=== PATIENT | female | born 1950 | race Caucasian/White ===

== ENCOUNTER → 2017-07-29 | Outpatient (CLI) | payer MEDICARE ==
[~2017-07-29] MED LIST: ALBUTEROL SULFATE IH; ALEN70TA2 PO; ATEN25TA PO; DIPH25TA22 PO; FLUT1DIS4 IH; HYDR1POW19 MC; HYDR25TA PO; LISI-613 PO; LORA10TA7 PO; MULT-1192 PO; OMEG1CAP12 PO; OMEP20TA2 PO; PREDNISONE PO; ROSU10TA35 PO; TICA90TA PO; [UNRECOGNIZED DRUG - OTHER] IH
== END | disposition home or self-care (01) ==
LOC: SHCH 07:53
PROVIDERS: ATTEND Internal Medicine Cardiovascular Disease
DX: I10 Essential (primary) hypertension (principal)
CPT/HCPCS: 93306

== ENCOUNTER → 2017-09-14 | Outpatient (CLI) | payer OTHER ==
[~2017-09-14] MED LIST changes: +ALBUTEROL SULFATE 0.083% 2.5 MG/3 ML INH IH ONE; +ROSU10TA27 PO; -ROSU10TA35 PO
== END | disposition home or self-care (01) ==
LOC: RAH 12:11
PROVIDERS: ATTEND Internal Medicine Cardiovascular Disease
DX: Z13.6 Encounter for screening for cardiovascular disorders (principal); K44.9 Diaphragmatic hernia without obstruction or gangrene
CPT/HCPCS: 75571; 94060; 94727; 94729

== ENCOUNTER → 2017-09-14 | Outpatient (CLI) | payer MEDICARE | END | disposition home or self-care (01) | LOC: RESP 08:48 | PROVIDERS: ATTEND Internal Medicine Cardiovascular Disease ==

== ENCOUNTER → 2017-10-10 | Outpatient (CLI) | payer MEDICARE ==
[~2017-10-10] MED LIST changes: -ALBUTEROL SULFATE 0.083% 2.5 MG/3 ML INH IH ONE; -ALEN70TA2 PO; -FLUT1DIS4 IH; -HYDR1POW19 MC; -MULT-1192 PO; -OMEG1CAP12 PO
== END | disposition home or self-care (01) ==
LOC: RAH 10:51
PROVIDERS: ATTEND Internal Medicine
DX: J84.10 Pulmonary fibrosis, unspecified (principal); J43.0 Unilateral pulmonary emphysema [MacLeod's syndrome]; J47.9 Bronchiectasis, uncomplicated; I25.10 Atherosclerotic heart disease of native coronary artery without angina pectoris; R94.2 Abnormal results of pulmonary function studies
CPT/HCPCS: 71250

== ENCOUNTER 2017-10-11 07:38 | Observation (INO) | payer MEDICARE ==
[2017-10-07 13:10] VITALS: BP 145/67
[2017-10-07 13:46] LABS: BASOPHILS % (AUTO) 0.8 % (0.0-5.0); EOSINOPHILS % (AUTO) 1.3 % (0.0-8.0); LYMPHOCYTES % (AUTO) 13.8 % (21.0-51.0); MEAN CORPUSCULAR HEMOGLOBIN 31.5 pg (27.0-33.0); MEAN CORPUSCULAR HGB CONC 34.3 g/dL (32.0-36.0); MEAN CORPUSCULAR VOLUME 91.8 fL (79-99); MONOCYTES % (AUTO) 11.2 % (3.0-13.0); NEUTROPHILS % (AUTO) 72.9 % (40.0-77.0); PLATELET COUNT (AUTO) 260 K/uL (130-400); RED BLOOD CELL COUNT(AUTO) 4.03 MIL/uL (4.00-5.50); RED CELL DISTRIBUTION WIDTH 13.5 % (11.0-15.5); WHITE BLOOD COUNT (AUTO) 8.2 K/uL (4.8-10.8)
[2017-10-07 13:49] LABS: APPEARANCE,URINE Clear (CLEAR); BILIRUBIN,URINE Negative (NEGATIVE); COLOR,URINE Yellow (YELLOW); GLUCOSE, URINE (UA) Negative (NEGATIVE); KETONES,URINE Negative (NEGATIVE); LEUKOCYTE ESTERASE ,URINE Negative (NEGATIVE); NITRATE,URINE Negative (NEGATIVE); OCCULT BLOOD,URINE Negative (NEGATIVE); PH,URINE 8.5 (5.0-8.0); PROTEIN,URINE Negative (NEGATIVE); UROBILINOGEN,URINE 0.2 mg/dL (0.2-1.0)
[2017-10-07 13:55] LABS: CREATININE 1.1 mg/dL (0.5-1.5); POTASSIUM 4.1 mmol/L (3.5-5.1)
[2017-10-07 13:57] LABS: BACTERIA,URINE Rare /HPF (None Seen); HYALINE CASTS, URINE 0-1 /LPF (0-1 /LPF); RBC,URINE None Seen /HPF (0-1); SQUAMOUS EPITHELIAL CELL,UR Rare /HPF (0-2); WBC,URINE None Seen /HPF (0-1)
[2017-10-07 13:58] LABS: INR 0.97 (0.85-1.15); PARTIAL THROMBOPLASTIN TIME 24.7 SEC (26.3-35.5); PROTHROMBIN TIME 10.2 SEC (9.6-11.6)
[2017-10-11] VITALS (14 sets, daily range): BP systolic 119–162; BP diastolic 61–86
[~2017-10-11] VITALS: Ht 157.5 cm; Wt 111.5 kg
[~2017-10-11 07:38] MED LIST changes: -TICA90TA PO
[2017-10-11] MEDS ORDERED: SODIUM BICARB 50MEQ 50ML VIAL ONE (10:27)
[2017-10-11] MEDS ORDERED: LIDOCAINE HCL 2% 20ML ONE (10:27)
[2017-10-11] MEDS ORDERED: HEPARIN SODIUM 1000UNIT/ML 10ML VIAL ONE (10:27)
[2017-10-11] MEDS ORDERED: ISOVUE-370 50ML VIAL IV ONE (10:27)
[2017-10-11] MEDS ORDERED: NITROGLYCERIN 5 MG/ML 10 ML VIAL IV ONE (10:27)
[2017-10-11] MEDS ORDERED: IOPAMIDOL-370 100 ML VIAL IV ONE ×2 (10:27→11:21)
[2017-10-11] MEDS ORDERED: MIDAZOLAM HCL 1 MG/ML 2ML VIAL ONE ×2 (10:42→11:15)
[2017-10-11] MEDS ORDERED: MEPERIDINE-PF 25 MG/ML SYG ONE ×2 (10:42→11:15)
[2017-10-11] MEDS ORDERED: DiphenhydrAMINE HCL 50 MG/ML VIAL ONE (10:47)
[2017-10-11] MEDS ORDERED: METHYLPREDNISOLONE SOD SUCC 125MG/2ML VIAL ONE (10:47)
[2017-10-11] MEDS ORDERED: TICAGRELOR 90 MG TABLET ONE (11:57)
[2017-10-11] MEDS: SODIUM CHLORIDE 0.9% 1000ML 1,000 ML IV SCH ×3 (12:08→21:03)
[2017-10-11] MEDS ORDERED: ACETAMINOPHEN-CODEINE 300/30MG TAB PO PRN ×2 (12:15)
[2017-10-11] MEDS ORDERED: ALBUTEROL SULFATE IH PRN (12:15)
[2017-10-11] MEDS ORDERED: ONDANSETRON HCL 4 MG/2 ML VIAL IVP PRN (12:15)
[2017-10-11] MEDS ORDERED: TICA90TA PO (12:18)
[2017-10-11] MEDS: TICAGRELOR 90 MG TABLET PO SCH (20:58)
[2017-10-11] MEDS ORDERED: ATORVASTATIN CALCIUM 20 MG TABLET PO SCH (21:00)
[2017-10-11] MEDS ORDERED: [UNRECOGNIZED DRUG - OTHER] IH SCH (21:00)
[2017-10-12] MEDS: SODIUM CHLORIDE 0.9% 1000ML 1,000 ML IV SCH (02:46)
[2017-10-12 03:45] VITALS: BP 124/44
[2017-10-12 04:18] LABS: HEMATOCRIT 32.3 % (36-48); MEAN CORPUSCULAR HEMOGLOBIN 32.5 pg (27.0-33.0); MEAN CORPUSCULAR HGB CONC 35.5 g/dL (32.0-36.0); MEAN CORPUSCULAR VOLUME 91.7 fL (79-99); PLATELET COUNT (AUTO) 235 K/uL (130-400); RED BLOOD CELL COUNT(AUTO) 3.52 MIL/uL (4.00-5.50); RED CELL DISTRIBUTION WIDTH 13.6 % (11.0-15.5); WHITE BLOOD COUNT (AUTO) 13.6 K/uL (4.8-10.8)
[2017-10-12 04:46] LABS: CREATININE 1.2 mg/dL (0.5-1.5); POTASSIUM 3.6 mmol/L (3.5-5.1)
[2017-10-12] MEDS ORDERED: ALBUTEROL SULFATE 0.083% 2.5 MG/3 ML INH IH PRN (07:15)
[2017-10-12 08:06] VITALS: BP 142/78
[2017-10-12] MEDS ORDERED: ATENOLOL 25 MG TABLET PO SCH (09:00)
[2017-10-12] MEDS ORDERED: PANTOPRAZOLE SODIUM 40 MG TABLET.DR PO SCH (09:00)
[2017-10-12] MEDS ORDERED: LORATADINE 10 MG TABLET PO SCH (09:00)
[2017-10-12] MEDS ORDERED: HYDROCHLOROTHIAZIDE 25 MG TABLET PO SCH (09:00)
[2017-10-12] MEDS ORDERED: LISINOPRIL 20 MG TABLET PO SCH (09:00)
[2017-10-12 09:15] VITALS: BP 142/78
[2017-10-12] MEDS: TICAGRELOR 90 MG TABLET PO SCH (09:15)
== END 2017-10-12 11:05 | disposition home or self-care (01) ==
LOC: DAH 07:38 → 2DH 07:39 → DAH 07:39
PROVIDERS: ADMIT Internal Medicine; ATTEND Internal Medicine
DX: I25.119 Atherosclerotic heart disease of native coronary artery with unspecified angina pectoris (principal); I10 Essential (primary) hypertension; E78.5 Hyperlipidemia, unspecified; K29.70 Gastritis, unspecified, without bleeding; J45.909 Unspecified asthma, uncomplicated; E66.9 Obesity, unspecified; G62.9 Polyneuropathy, unspecified; I25.84 Coronary atherosclerosis due to calcified coronary lesion; M51.9 Unspecified thoracic, thoracolumbar and lumbosacral intervertebral disc disorder; G89.29 Other chronic pain; M54.9 Dorsalgia, unspecified; Z90.49 Acquired absence of other specified parts of digestive tract; Z82.49 Family history of ischemic heart disease and other diseases of the circulatory system; Z88.6 Allergy status to analgesic agent
CPT/HCPCS: 36415 ×3; 71045; 80048 ×2; 80061; 81001; 85025; 85027; 85347 ×2; 85610; 85730; 93005; 93458; 94664; A4606; C1725; C1760; C1769 ×2; C1874 ×2; C1887; C1894 ×2; C9600 ×2; G0378 ×27; J1200; J1644; J2175 ×2; J2250 ×2; J2930; J3490 ×3; J7030 ×2; Q9967 ×3; 99152; 99153

== ENCOUNTER 2019-04-06 13:00 | Observation (INO) | payer MEDICARE ==
[~2019-04-06] VITALS: Ht 157.5 cm; Wt 98.9 kg
[2019-04-06 10:08] VITALS: BP 157/59
[~2019-04-06 13:00] MED LIST changes: -DIPH25TA22 PO; -PREDNISONE PO; -ROSU10TA27 PO; +ROSU10TA28 PO; -[UNRECOGNIZED DRUG - OTHER] IH
[2019-04-06] MEDS ORDERED: FLUT1DIS4 IH (18:05)
[2019-04-06] MEDS ORDERED: AEC81 PO (18:05)
[2019-04-06] MEDS ORDERED: [UNRECOGNIZED DRUG - OTHER] TP (18:05)
[2019-04-06] MEDS ORDERED: TICA60TA PO (18:05)
[2019-04-06] MEDS ORDERED: ANAS1TAB7 PO (18:05)
[2019-04-10] VITALS (20 sets, daily range): BP systolic 119–183; BP diastolic 50–95
[2019-04-10] MEDS: CLINDAMYCIN 900 MG/D5% WATER 50 ML IV SCH ×6 (05:00→16:52)
[2019-04-10] MEDS ORDERED: LACTATED RINGERS 1000ML 1,000 ML IV ONE (06:37)
[2019-04-10] MEDS ORDERED: BUPIVACAINE/EPI/PF 0.5% 30ML VIAL IJ ONE (06:57)
[2019-04-10] MEDS ORDERED: DURAMORPH PF1 MG/ML 10ML AMP IV ONE (06:57)
[2019-04-10] MEDS ORDERED: THROMBIN-JMI 20000 UNIT KIT TP ONE (06:57)
[2019-04-10] MEDS ORDERED: BACITRACIN 50,000 UNIT VIAL ONE (06:57)
[2019-04-10] MEDS ORDERED: SUCCINYLCHOLINE 200MG/10ML SYR ONE (07:03)
[2019-04-10] MEDS ORDERED: LIDOCAINE PF 2% 5ML ABBOJECT ONE (07:03)
[2019-04-10] MEDS ORDERED: MIDAZOLAM HCL 1 MG/ML 2ML VIAL ONE (07:04)
[2019-04-10] MEDS ORDERED: GLYCOPYRROLATE 1 MG/5 ML SYRINGE ONE (07:04)
[2019-04-10] MEDS ORDERED: PROPOFOL 10 MG/ML 20ML VIAL IV ONE (07:04)
[2019-04-10] MEDS ORDERED: DEXAMETHASONE SOD PHOSPHATE 10MG/ML 1ML VIAL ONE (07:04)
[2019-04-10] MEDS ORDERED: ROCURONIUM 10MG/1ML SYR 10 MG/ML ML ONE ×2 (07:05→08:50)
[2019-04-10] MEDS ORDERED: ONDANSETRON HCL 4 MG/2 ML VIAL ONE (07:05)
[2019-04-10] MEDS ORDERED: NEOSTIGMINE 5MG/5ML SYR IV ONE (07:05)
[2019-04-10] MEDS ORDERED: FENTANYL CITRATE PF 50 MCG/1 ML 2ML VIAL ONE ×2 (07:06→08:53)
[2019-04-10] MEDS ORDERED: LIDOCAINE HCL 4% LTA SOL 4 ML VIAL ONE (07:12)
[2019-04-10] MEDS ORDERED: DEXAMETHASONE SOD PHOSPHATE 4 MG/ML 1ML VIAL ONE (07:12)
[2019-04-10] MEDS ORDERED: EPHEDRINE SULFATE 50 MG/ML AMPULE ONE (08:16)
[2019-04-10] MEDS ORDERED: DiphenhydrAMINE HCL 50 MG/ML VIAL ONE (08:42)
[2019-04-10] MEDS ORDERED: GENTAMICIN 80 MG/NS 100 ML PB 100 ML IV ONE (08:53)
[2019-04-10] MEDS ORDERED: BUPIVACAINE/EPI/PF 0.25% 30ML VIAL IJ ONE (10:49)
[2019-04-10] MEDS ORDERED: ALBUTEROL SULFATE IH PRN (11:30)
[2019-04-10] MEDS ORDERED: SODIUM CHLORIDE 0.9% 10 ML VIAL IVP PRN (11:30)
[2019-04-10] MEDS: DEXAMETHASONE SOD PHOSPHATE 4 MG/ML 1ML VIAL IVP SCH ×3 (11:30→23:18)
[2019-04-10] MEDS ORDERED: APPL TP PRN (11:30)
[2019-04-10] MEDS ORDERED: PROMETHAZINE HCL 25 MG/ML 1ML AMPULE IM PRN (11:30)
[2019-04-10] MEDS ORDERED: HYDROCODONE/ACETAMINOPHEN 5/325 MG TAB PO PRN (11:30)
[2019-04-10] MEDS ORDERED: HYDRALAZINE HCL 20 MG/ML VIAL ONE (12:20)
--- NOTE | 2019-04-10 12:55 | NUR ---
received pt post op, she is aaox3, moving feet, rating pain at a 2; at bedside.
[2019-04-10] MEDS: MORPHINE SULFATE 2 MG/ML 1ML SYG IVP PRN ×2 (14:35→20:14)
[2019-04-10] MEDS: BUDESONIDE 0.5 MG/2 ML INH IH SCH (18:58)
[2019-04-10] MEDS: ALBUTEROL SULFATE 0.083% 2.5 MG/3 ML INH IH SCH ×2 (18:58→23:58)
--- NOTE | 2019-04-10 19:58 | NUR ---
AMBULATING OUT OF ROOM AMBULATING IN HALLWAY AT THIS TIME, NO C/O PAIN OR DISCOMFORT. NO HEADACHE OR DIZZINESS REPORTED. AMBULATING WITH WALKER, STATES FEELS MORE COMFORTABLE. DRESSING TO LOWER BACK OBSERVED WITH MODERATE DRAINAGE, MEREDITH DRAIN IN PLACE. IVAN CATHETER DRAINING YELLOW URINE.
[2019-04-10] MEDS: LACTATED RINGERS 1000ML 1,000 ML IV SCH (20:08)
[2019-04-10] MEDS ORDERED: TICAGRELOR 60 MG PO SCH (21:00)
[2019-04-10] MEDS ORDERED: ATORVASTATIN CALCIUM 20 MG TABLET PO SCH (21:00)
[2019-04-11] VITALS: BP 128/68
[2019-04-11] MEDS: LACTATED RINGERS 1000ML 1,000 ML IV SCH (00:14)
[2019-04-11] MEDS: DEXAMETHASONE SOD PHOSPHATE 4 MG/ML 1ML VIAL IVP SCH (05:22)
--- NOTE | 2019-04-11 05:53 | NUR ---
PATIENT CARE IVAN CATHETER DISCONTINUED AT 05:30, TOLERATED PROCEDURE WELL. OUT OF ROOM AMBULATING WITH WALKER IN HALLWAY AT THIS TIME, NO C/O PAIN OR DISCOMFORT. NO HEADACHE OR DIZZINESS REPORTED. DRESSING TO LOWER BACK OBSERVED WITH MODERATE DRAINAGE SAME PREVIOUS, MEREDITH DRAIN IN PLACE. CURRENTLY DUE TO VOID.
[2019-04-11] MEDS: ALBUTEROL SULFATE 0.083% 2.5 MG/3 ML INH IH SCH (06:22)
[2019-04-11] MEDS: BUDESONIDE 0.5 MG/2 ML INH IH SCH (06:30)
[2019-04-11 08:01] VITALS: BP 140/63
--- NOTE | 2019-04-11 08:45 | NUR ---
DISCHARGE INSTRUCTIONS GIVEN AND EXPLAINED UTILIZING TEACH BACK METHOD.PT AND PT'S VERBALIZED UNDERSTANDING. PT REPORTS WILL TAKE HER OWN HOME MEDICATIONS. DRESSING CHANGED UTILIZING ASEPTIC TECHNIQUE. MINIMAL SANGUINEOUS DRAINAGE WITH MILD SWELLING AND NO REDNESS. COVERED WITH 4X4 GAUZE SECURED WITH TAPE. MEREDITH DRAIN REMOVED. 70ML BLOODY DRAINAGE. DRESSING D/I. STAPLE REMOVAL KIT GIVEN TO PATIENT AND INSTRUCTED TO TAKE WITH HER TO DR. SANTO'S APPOINTMENT.
[2019-04-11] MEDS ORDERED: HYDROCHLOROTHIAZIDE 25 MG TABLET PO SCH (09:00)
[2019-04-11] MEDS ORDERED: ASPIRIN 81 MG EC TAB PO SCH (09:00)
[2019-04-11] MEDS ORDERED: FLUTICASONE/SALMETEROL 100MCG-50MCG/DISKUS IH SCH (09:00)
[2019-04-11] MEDS ORDERED: LORATADINE 10 MG TABLET PO SCH (09:00)
[2019-04-11] MEDS ORDERED: ATENOLOL 25 MG TABLET PO SCH (09:00)
[2019-04-11] MEDS ORDERED: ANASTROZOLE 1 MG PO SCH (09:00)
[2019-04-11] MEDS ORDERED: PANTOPRAZOLE SODIUM 40 MG TABLET.DR PO SCH (09:00)
[2019-04-11] MEDS ORDERED: LISINOPRIL 20 MG TABLET PO SCH (09:00)
== END 2019-04-11 09:33 | disposition home or self-care (01) ==
LOC: EDSTATUS 13:00 → DAHIP 04-10 05:37 → 4BH 04-10 12:38 → EDSTATUS 04-10 13:00
PROVIDERS: ADMIT Neurological Surgery; ATTEND Neurological Surgery
DX: M48.061 Spinal stenosis, lumbar region without neurogenic claudication (principal); C50.919 Malignant neoplasm of unspecified site of unspecified female breast; E66.9 Obesity, unspecified; I10 Essential (primary) hypertension; E78.5 Hyperlipidemia, unspecified; J45.909 Unspecified asthma, uncomplicated; Z90.49 Acquired absence of other specified parts of digestive tract; Z90.89 Acquired absence of other organs; Z98.61 Coronary angioplasty status; Z98.51 Tubal ligation status; Z79.82 Long term (current) use of aspirin; Z79.51 Long term (current) use of inhaled steroids; Z79.899 Other long term (current) drug therapy; Z88.0 Allergy status to penicillin; Z88.8 Allergy status to other drugs, medicaments and biological substances; Z91.040 Latex allergy status; Z68.39 Body mass index [BMI] 39.0-39.9, adult
CPT/HCPCS: 63047; 63048 ×2; 72020; 94640 ×5; 94664; 96365; 96375; 96376 ×2; A4215; A4221; A4222; A4223; A4344; A4600; A4649 ×3; A4663; A6260; G0378 ×22; J0330; J0360; J1100 ×5; J1200; J1580; J2001; J2250; J2274; J2405; J2704; J2710; J3010 ×2; J3490 ×6; J7030; J7120 ×4

== ENCOUNTER → 2020-12-23 | Outpatient (CLI) | payer MEDICARE ==
[~2020-12-23] MED LIST changes: +AEC81 PO; +ANAS1TAB7 PO; +FLUT1DIS4 IH; -LISI-613 PO; +LISI20TA24 PO; +REGADENOSON 0.4 MG/5 ML PF SYG IVP SCH; +TICA60TA PO; +[UNRECOGNIZED DRUG - OTHER] TP
== END | disposition home or self-care (01) ==
LOC: SHCH 07:36
PROVIDERS: ATTEND Internal Medicine Cardiovascular Disease
DX: I10 Essential (primary) hypertension (principal); R06.09 Other forms of dyspnea; R51.9 Headache, unspecified; Z95.5 Presence of coronary angioplasty implant and graft
CPT/HCPCS: 78452; 93017; 96374; A9500 ×2; J2785

== ENCOUNTER → 2020-12-28 | Outpatient (CLI) | payer MEDICARE ==
[~2020-12-28] MED LIST changes: -REGADENOSON 0.4 MG/5 ML PF SYG IVP SCH
== END | disposition home or self-care (01) ==
LOC: SHCH 13:27
PROVIDERS: ATTEND Internal Medicine Cardiovascular Disease
DX: I35.0 Nonrheumatic aortic (valve) stenosis (principal)
CPT/HCPCS: 93306; 93356

== ENCOUNTER 2021-12-30 07:23 | Observation (INO) | payer MEDICARE ==
[2021-12-28 09:48] LABS: BASOPHILS % (AUTO) 1.2 % (0.0-5.0); EOSINOPHILS % (AUTO) 3.9 % (0.0-8.0); HEMATOCRIT 34.4 % (36-48); LYMPHOCYTES % (AUTO) 10.3 % (21.0-51.0); MEAN CORPUSCULAR HEMOGLOBIN 28.1 pg (27.0-33.0); MEAN CORPUSCULAR HGB CONC 32.8 g/dL (32.0-36.0); MEAN CORPUSCULAR VOLUME 85.6 fL (79-99); MONOCYTES % (AUTO) 12.1 % (3.0-13.0); NEUTROPHILS % (AUTO) 72.2 % (40.0-77.0); PLATELET COUNT (AUTO) 266 K/uL (130-400); RED BLOOD CELL COUNT(AUTO) 4.02 MIL/uL (4.00-5.50); RED CELL DISTRIBUTION WIDTH 14.3 % (11.0-15.5); WHITE BLOOD COUNT (AUTO) 5.9 K/uL (4.8-10.8)
[2021-12-28 09:55] LABS: CREATININE 0.9 mg/dL (0.5-1.5); POTASSIUM 4.5 mmol/L (3.5-5.1)
[2021-12-28 10:00] LABS: INR 0.94 (0.85-1.15); PROTHROMBIN TIME 10.3 SEC (9.6-11.6)
[2021-12-28 10:13] VITALS: BP 175/75
[2021-12-28 10:31] LABS: APPEARANCE,URINE Clear (CLEAR); BILIRUBIN,URINE Negative (NEGATIVE); COLOR,URINE Yellow (YELLOW); GLUCOSE, URINE (UA) Negative (NEGATIVE); KETONES,URINE Negative (NEGATIVE); LEUKOCYTE ESTERASE ,URINE Trace (NEGATIVE); NITRATE,URINE Negative (NEGATIVE); OCCULT BLOOD,URINE Negative (NEGATIVE); PROTEIN,URINE Negative (NEGATIVE)
[2021-12-28 10:40] LABS: BACTERIA,URINE Rare /HPF (None Seen); RBC,URINE 0-1 /HPF (0-1); SQUAMOUS EPITHELIAL CELL,UR Rare /HPF (0-2); WBC,URINE 0-1 /HPF (0-1)
[~2021-12-30] VITALS: Ht 154.9 cm; Wt 102.2 kg
[2021-12-30] VITALS (31 sets, daily range): BP systolic 117–176; BP diastolic 52–86
[~2021-12-30 07:23] MED LIST changes: -ATEN25TA PO; +ATEN50TA PO; +CEFAZOLIN SODIUM 1 GM VIAL IVP SCH; -ROSU10TA28 PO; +ROSU20TA31 PO; -TICA60TA PO; -[UNRECOGNIZED DRUG - OTHER] TP
[2021-12-30] MEDS ORDERED: CEFAZOLIN SODIUM 1 GM VIAL ONE (08:00)
[2021-12-30] MEDS ORDERED: LACTATED RINGERS 1000ML 1,000 ML IV ONE (08:01)
[2021-12-30] MEDS ORDERED: 0.9%NACL 1000ML 1,000 ML IV ONE (08:09)
[2021-12-30] MEDS ORDERED: FENTANYL CITRATE PF 50 MCG/1 ML 2ML VIAL ONE ×2 (08:15→08:36)
[2021-12-30] MEDS ORDERED: MIDAZOLAM HCL 1 MG/ML 2ML VIAL ONE (08:15)
[2021-12-30] MEDS ORDERED: ROCURONIUM 10MG/1ML SYR 10 MG/ML ML ONE (08:15)
[2021-12-30] MEDS ORDERED: PROPOFOL 10 MG/ML 20ML VIAL IV ONE (08:15)
[2021-12-30] MEDS ORDERED: ROPIVACAINE 0.5% 5MG/ML 30ML IJ ONE (08:35)
[2021-12-30] MEDS ORDERED: ONDANSETRON 4MG INJ ONE (08:44)
[2021-12-30] MEDS ORDERED: LIDOCAINE HCL-MPF 1% 2ML VIAL IV PRN (11:30)
[2021-12-30] MEDS ORDERED: DiphenhydrAMINE HCL 50 MG/ML VIAL IVP PRN (11:30)
[2021-12-30] MEDS ORDERED: KCL 20 MEQ ERTAB PO PRN (11:30)
[2021-12-30] MEDS ORDERED: FERROUS FUMARATE 324 MG TABLET PO PRN (11:30)
[2021-12-30] MEDS ORDERED: POTASSIUM CHLORIDE 20MEQ/100ML 100 ML IV PRN (11:30)
[2021-12-30] MEDS ORDERED: CALCIUM CARB 500MG PO PRN (11:30)
[2021-12-30] MEDS ORDERED: POTASSIUM CHLORIDE 10% ELIXIR 20 MEQ/15 ML UDCUP PO PRN (11:30)
[2021-12-30] MEDS ORDERED: OXYCODONE HCL 5 MG TAB PO PRN (11:30)
[2021-12-30] MEDS ORDERED: NEOSTIGMINE 5MG/5ML SYR IV ONE (11:50)
[2021-12-30] MEDS ORDERED: KETOROLAC 30MG VIAL (30MG/ML) ONE (11:50)
[2021-12-30] MEDS ORDERED: GLYCOPYRROLATE 1 MG/5 ML SYRINGE ONE (11:50)
[2021-12-30] MEDS ORDERED: MEPERIDINE-PF 25 MG/ML SYG ONE ×2 (12:12→12:21)
[2021-12-30] MEDS ORDERED: TRANEXAMIC ACID 1000MG/10ML ONE (12:22)
[2021-12-30] MEDS: OXYCODONE HCL 5 MG TAB PO PRN ×2 (14:25→21:00)
[2021-12-30] MEDS: KETOROLAC 15MG/ML VIAL (15MG/ML) IV PRN ×2 (14:38→18:06)
[2021-12-30] MEDS: CEFAZOLIN SODIUM 1 GM VIAL IVP SCH (18:44)
[2021-12-30] MEDS: ONDANSETRON 4MG INJ IVP PRN (18:56)
[2021-12-30] MEDS ORDERED: ALBUTEROL SULFATE IH PRN (20:00)
[2021-12-30] MEDS: FAMOTIDINE 20MG TAB PO SCH (20:57)
[2021-12-30] MEDS: ASPIRIN 81 MG EC TAB PO SCH (20:57)
[2021-12-30] MEDS: ATENOLOL 50 MG TABLET PO SCH (20:58)
[2021-12-30] MEDS: CELECOXIB 200 MG CAP PO SCH (20:58)
[2021-12-30] MEDS: LISINOPRIL 20 MG TABLET PO SCH (20:59)
[2021-12-30] MEDS: ACETAMINOPHEN 500 MG TABLET PO SCH (20:59)
[2021-12-30] MEDS: ROSUVASTATIN CALCIUM 20 MG PO SCH (21:00)
[2021-12-30] MEDS: Fluticasone/Salmeterol (Advair 100-50 Diskus) IH SCH (21:00)
[2021-12-30] MEDS: 0.9%NACL 1000ML 1,000 ML IV SCH (21:07)
[2021-12-31] MEDS: CEFAZOLIN SODIUM 1 GM VIAL IVP SCH (00:49)
[2021-12-31] MEDS: ACETAMINOPHEN 500 MG TABLET PO SCH ×3 (03:38→22:08)
[2021-12-31 03:53] VITALS: BP 128/63
[2021-12-31 05:30] LABS: HEMATOCRIT 25.1 % (36-48); MEAN CORPUSCULAR HEMOGLOBIN 28.5 pg (27.0-33.0); MEAN CORPUSCULAR HGB CONC 33.1 g/dL (32.0-36.0); MEAN CORPUSCULAR VOLUME 86.3 fL (79-99); RED BLOOD CELL COUNT(AUTO) 2.91 MIL/uL (4.00-5.50); RED CELL DISTRIBUTION WIDTH 14.3 % (11.0-15.5); WHITE BLOOD COUNT (AUTO) 7.6 K/uL (4.8-10.8)
[2021-12-31 05:44] LABS: CREATININE 1.1 mg/dL (0.5-1.5); POTASSIUM 4.3 mmol/L (3.5-5.1)
[2021-12-31 07:30] VITALS: BP 106/47
[2021-12-31] MEDS: 0.9%NACL 1000ML 1,000 ML IV SCH (07:30)
[2021-12-31] MEDS: KETOROLAC 15MG/ML VIAL (15MG/ML) IV PRN ×2 (08:45→21:51)
[2021-12-31] MEDS: Fluticasone/Salmeterol (Advair 100-50 Diskus) IH SCH ×2 (09:00→21:00)
[2021-12-31] MEDS: HYDROCHLOROTHIAZIDE 25 MG TABLET PO SCH ×2 (09:00→10:02)
[2021-12-31] MEDS: Anastrozole 1 MG PO SCH (09:00)
[2021-12-31] MEDS: LISINOPRIL 20 MG TABLET PO SCH ×3 (09:00→21:52)
[2021-12-31] MEDS: ATENOLOL 50 MG TABLET PO SCH ×3 (09:00→21:00)
[2021-12-31] MEDS: CELECOXIB 200 MG CAP PO SCH ×2 (09:36→22:04)
[2021-12-31] MEDS: FAMOTIDINE 20MG TAB PO SCH ×2 (09:36→21:52)
[2021-12-31] MEDS: LORATADINE 10 MG TABLET PO SCH (09:36)
[2021-12-31] MEDS: ASPIRIN 81 MG EC TAB PO SCH ×2 (09:36→21:52)
[2021-12-31] MEDS: POLYETHYLENE GLYCOL 3350 17 GM POWD.PACK PO SCH (09:58)
[2021-12-31] MEDS: OXYCODONE HCL 5 MG TAB PO PRN (10:40)
[2021-12-31 11:00] VITALS: BP 105/44
[2021-12-31] MEDS: ONDANSETRON 4MG INJ IVP PRN (12:44)
[2021-12-31 16:00] VITALS: BP 110/45
[2021-12-31] MEDS: ROSUVASTATIN CALCIUM 20 MG PO SCH (21:00)
[2021-12-31 21:02] VITALS: BP 117/47
[2021-12-31 23:25] VITALS: BP 110/47
[2022-01-01] MEDS: TRAMADOL HCL 50 MG TABLET PO PRN ×2 (00:58→08:33)
[2022-01-01] MEDS: ACETAMINOPHEN 500 MG TABLET PO SCH ×2 (03:28→12:11)
[2022-01-01 04:25] VITALS: BP 125/55
[2022-01-01 07:50] VITALS: BP 103/51
[2022-01-01] MEDS: Anastrozole 1 MG PO SCH (09:00)
[2022-01-01] MEDS: Fluticasone/Salmeterol (Advair 100-50 Diskus) IH SCH (09:00)
[2022-01-01] MEDS: HYDROCHLOROTHIAZIDE 25 MG TABLET PO SCH (09:00)
[2022-01-01] MEDS: ATENOLOL 50 MG TABLET PO SCH (09:00)
[2022-01-01] MEDS: LISINOPRIL 20 MG TABLET PO SCH (09:00)
[2022-01-01] MEDS: CELECOXIB 200 MG CAP PO SCH (09:02)
[2022-01-01] MEDS: FAMOTIDINE 20MG TAB PO SCH (09:02)
[2022-01-01] MEDS: LORATADINE 10 MG TABLET PO SCH (09:02)
[2022-01-01] MEDS: ASPIRIN 81 MG EC TAB PO SCH (09:02)
[2022-01-01] MEDS: POLYETHYLENE GLYCOL 3350 17 GM POWD.PACK PO SCH (09:06)
[2022-01-01 11:19] VITALS: BP 109/55
[2022-01-02] MEDS ORDERED: BISACODYL 10 MG SUPP.RECT RC PRN (11:30)
== END 2022-01-01 16:55 ==
LOC: DAH 07:23 → DAHIP 07:24 → DAH 07:24 → 4AH 13:46
PROVIDERS: ADMIT Orthopaedic Surgery; ATTEND Orthopaedic Surgery
DX: M17.11 Unilateral primary osteoarthritis, right knee (principal); Z20.822 Contact with and (suspected) exposure to COVID-19; I10 Essential (primary) hypertension; I25.10 Atherosclerotic heart disease of native coronary artery without angina pectoris; J45.909 Unspecified asthma, uncomplicated; D62 Acute posthemorrhagic anemia; M25.561 Pain in right knee; G89.29 Other chronic pain; E78.5 Hyperlipidemia, unspecified; Z85.3 Personal history of malignant neoplasm of breast; Z96.652 Presence of left artificial knee joint; Z79.82 Long term (current) use of aspirin; Z90.49 Acquired absence of other specified parts of digestive tract; Z79.899 Other long term (current) drug therapy; Z98.890 Other specified postprocedural states; Z98.51 Tubal ligation status; Z98.891 History of uterine scar from previous surgery
CPT/HCPCS: 36415; 64447; 76942; 80048; 81001; 84295; 85025; 85027; 85610; 87088; 87426; 87641; 96374; 96375; 96376; 97039; G0378; J0690; J1885; J2175; J2250; J2405; J2704; J2710; J2795; J3010; J3490; J7030; J7120

== ENCOUNTER → 2022-02-01 | Outpatient (CLI) | payer MEDICARE ==
[~2022-02-01] MED LIST changes: -CEFAZOLIN SODIUM 1 GM VIAL IVP SCH
[2022-02-01 14:15] LABS: BASOPHILS % (AUTO) 0.7 % (0.0-5.0); EOSINOPHILS % (AUTO) 2.1 % (0.0-8.0); HEMATOCRIT 32.9 % (36-48); LYMPHOCYTES % (AUTO) 7.3 % (21.0-51.0); MEAN CORPUSCULAR HEMOGLOBIN 27.7 pg (27.0-33.0); MEAN CORPUSCULAR HGB CONC 30.7 g/dL (32.0-36.0); MEAN CORPUSCULAR VOLUME 90.1 fL (79-99); MONOCYTES % (AUTO) 11.8 % (3.0-13.0); NEUTROPHILS % (AUTO) 77.8 % (40.0-77.0); PLATELET COUNT (AUTO) 287 K/uL (130-400); RED BLOOD CELL COUNT(AUTO) 3.65 MIL/uL (4.00-5.50); RED CELL DISTRIBUTION WIDTH 13.8 % (11.0-15.5); WHITE BLOOD COUNT (AUTO) 7.6 K/uL (4.8-10.8)
== END | disposition home or self-care (01) ==
LOC: RAH 12:14
PROVIDERS: ATTEND Internal Medicine Pulmonary Disease
DX: M47.815 Spondylosis without myelopathy or radiculopathy, thoracolumbar region (principal); J98.4 Other disorders of lung
CPT/HCPCS: 36415; 71250; 85025

== ENCOUNTER → 2023-08-17 | Outpatient (CLI) | payer MEDICARE ==
[~2023-08-17] MED LIST changes: +IOHEXOL 350 MG/ML 100ML INFUS..BTL IV ONE; -ROSU20TA31 PO; +ROSU20TA73 PO
== END | disposition home or self-care (01) ==
LOC: RAH 07:18
PROVIDERS: ATTEND Internal Medicine Cardiovascular Disease
DX: K44.9 Diaphragmatic hernia without obstruction or gangrene (principal); I25.10 Atherosclerotic heart disease of native coronary artery without angina pectoris
CPT/HCPCS: 75574; Q9967

== ENCOUNTER → 2023-08-24 | Outpatient (CLI) | payer MEDICARE ==
[~2023-08-24] MED LIST changes: -IOHEXOL 350 MG/ML 100ML INFUS..BTL IV ONE
== END | disposition home or self-care (01) ==
LOC: SHCH 07:37
PROVIDERS: ATTEND Internal Medicine Cardiovascular Disease
DX: I08.0 Rheumatic disorders of both mitral and aortic valves (principal); R06.9 Unspecified abnormalities of breathing; I25.10 Atherosclerotic heart disease of native coronary artery without angina pectoris; I27.20 Pulmonary hypertension, unspecified
CPT/HCPCS: 93306